=== PATIENT | female | born 1945 | race Caucasian/White ===

== ENCOUNTER 2017-04-21 12:53 | Emergency (ER) | payer OTHER ==
[2017-04-21 13:19] VITALS: TEMP 98.8; BMI 23.0
--- NOTE | 2017-04-21 15:44 | PDOC ---
History of Present Illness - General Chief Complaint: Lightheaded Stated Complaint: NECK PAIN Time Seen by Provider: 04/21/17 15:31 History Source: Patient - History of Present Illness Initial Comments: 04/21/17 16:30 Patient is a 71 y.o. female with a PMH of DLD and Hypothyroidism who presents to our ED c/o 2 isolated pre-syncopal episodes, one episode on exertion and the other when moving from a sitting to standing position. Patient denies any chest pain, shortness of breath, nausea/vomiting as well as recent h/o fevers/ chills. NKDA PMD: Dr. El Hurst Past History - Past Medical History Allergies/Adverse Reactions: Allergies Allergy/AdvReac Type Severity Reaction Status Date / Time No Known Allergies Allergy Verified 04/21/17 13:14 Home Medications: Ambulatory Orders Levothyroxine [Synthroid] 88 mcg PO DAILY 11/13/11 Atorvastatin Calcium 20 mg PO DAILY 04/21/17 COPD: No HTN: No (low bp) Hypercholesterolemia: Yes Thyroid Disease: Yes (hypo) - Immunization History Immunization Up to Date: No - Suicide/Smoking/Psychosocial Hx Smoking Status: No Smoking History: Never smoked Number of Cigarettes Smoked Daily: 0 Information on smoking cessation initiated: No Hx Alcohol Use: No Drug/Substance Use Hx: No Substance Use Type: None Review of Systems - Review of Systems Constitutional: No: Chills, Fever HEENTM: No: Blurred Vision, Double Vision Respiratory: No: Cough Cardiac (ROS): Yes: Lightheadedness. No: Chest Pain, Palpitations, Chest Tightness : No: Burning, Dysuria *Physical Exam - Vital Signs Last Vital Signs Temp Pulse Resp BP Pulse Ox 98.8 F 73 18 127/70 100 04/21/17 13:15 04/21/17 13:15 04/21/17 13:15 04/21/17 13:15 04/21/17 13:15 - Physical Exam General Appearance: Yes: Nourished, Appropriately Dressed HEENT: positive: EOMI, AGUSTIN. negative: Tonsillar Exudate, Tonsillar Erythema, TM Bulging, TM Dull, TM Erythema Neck: positive: Trachea midline, Supple. 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 female who presents to the ED c/o 2 isolated pre-syncopal episodes. On PE patient is hemodynamically stable with appreciable systolic murmur in 2nd intercostal space - likely 2/2 to aortic stenosis. EKG shows NSR , no deviations, good R wave progression V1-V6 -- low clinical concern for ACS, however lightheadedness possible anginal equivalent. Will send troponin as well as CBC (r/o anemia) and CMP (r/o SiSx 2/2 to electrolyte abnormalities). Reassess. 04/21/17 19:16 Troponin (-) x1, CBC shows no anemia, CMP shows no electrolyte derangements. Will discharge home with return precautions follow-up to cardiology. *DC/Admit/Observation/Transfer Diagnosis at time of Disposition: Lightheadedness - Discharge Dispostion Disposition: HOME Condition at time of disposition: Good - Referrals Referrals: El Hurst MD [Primary Care Provider] - Kehinde Zamudio MD [Staff Physician] - - Patient Instructions Additional Instructions: You were evaluated today for lightheadedness. All of your labs were normal and your EKG showed no concerning abnormalities suggestive of active cardiac events. Given your history of high cholesterol, we recommend you make a follow- up appointment with cardiology in the next 1 week. Return to the Emergency Department for any new/worsening/concerning symptoms including chest pain, shortness of breath. - Post Discharge Activity
[2017-04-21 16:26] LABS: BASO % 0.6 % (0-2.0); HEMATOCRIT 37.5 % (32.4-45.2); HEMOGLOBIN 11.9 GM/dL (10.7-15.3); LYMPH % 25.6 % (8-40); MCH 25.9 pg (25.7-33.7); MCHC 31.8 g/dl (32.0-36.0); MEAN CELL VOLUME 81.6 fl (80-96); MEAN PLT VOLUME 7.4 fl (7.5-11.1); MONO % 10.4 % (3.8-10.2); NEUT % 61.4 % (42.8-82.8); PLATELET COUNT 243 K/MM3 (134-434); RDW 13.4 % (11.6-15.6); WHITE BLOOD COUNT 4.7 K/mm3 (4.0-10.0)
[2017-04-21 16:38] LABS: ALBUMIN 3.7 g/dl (3.4-5.0); ANION GAP 4 (8-16); BILIRUBIN,TOTAL 0.3 mg/dL (0.2-1.0); BLOOD UREA NITROGEN 9 mg/dL (7-18); CHLORIDE 108 mmol/L (98-107); CO2 28 mmol/L (21-32); CREATININE 0.8 mg/dL (0.55-1.02); GLUCOSE,RANDOM 141 mg/dL (74-106); POTASSIUM 3.8 mmol/L (3.5-5.1); SGOT/AST 17 U/L (15-37); SGPT/ALT 22 U/L (12-78); SODIUM 140 mmol/L (136-145); TOT PROT 7.1 g/dl (6.4-8.2)
--- NOTE | 2017-04-21 16:38 | PDOC ---
Attending Attestation - Resident Resident Name: ReneeMarybel - ED Attending Attestation I have performed the following: I have examined & evaluated the patient, The case was reviewed & discussed with the resident, I agree w/resident's findings & plan, Exceptions are as noted - HPI HPI: 04/21/17 16:37 71 yo female who had 2 episodes of lightheadedness, once when she stood up and once whle walking. She denies any shortness of breath or chest pain pmh hyperlididemia - Physicial Exam PE: 04/21/17 16:38 wnwd 71 to female in no acute distress head ncat neck supple lungs cta b/l cvs ++murmur abd nontender ext no edema skin warm and dry neuro axox3,.ambulatory psych appropriate - Medical Decision Making 04/21/17 16:40 plan ekg.cardiac w/u,reassess 04/21/17 19:12 cbc and chemistry revealed and sex=89 negative trop ekg nsr
[2017-04-21 16:39] LABS: ALK PHOS 53 U/L (45-117)
[2017-04-21 17:51] VITALS: BP 145/66; PULSE 67
[2017-04-21 17:52] LABS: URINE APPEARANCE CLEAR; URINE BILIRUBIN NEGATIVE (NEGATIVE); URINE BLOOD 1+ (NEGATIVE); URINE COLOR COLORLESS; URINE GLUCOSE (UA) NEGATIVE (NEGATIVE); URINE KETONE NEGATIVE (NEGATIVE); URINE LEUK ESTERASE NEGATIVE (NEGATIVE); URINE NITRITE NEGATIVE (NEGATIVE); URINE PROTEIN NEGATIVE (NEGATIVE); URINE UROBILINOGEN NEGATIVE mg/dL (0.2-1.0)
[2017-04-21 17:58] LABS: INR 1.09 (0.82-1.09); PROTHROMBIN TIME (PATIENT) 12.3 SEC (9.98-11.88)
[2017-04-21 18:03] LABS: URINE BACTERIA RARE /hpf (NONE SEEN)
--- NOTE | 2017-04-23 08:09 | EKG ---
Test Reason : Blood Pressure : / mmHG Vent. Rate : 065 BPM Atrial Rate : 065 BPM P-R Int : 146 ms QRS Dur : 086 ms QT Int : 396 ms P-R-T Axes : 056 017 027 degrees QTc Int : 411 ms NORMAL SINUS RHYTHM POSSIBLE LEFT ATRIAL ENLARGEMENT BORDERLINE ECG NO PREVIOUS ECGS AVAILABLE Confirmed by ELVIA BRYANT, AMANDA ([id number]) on 04/23/2017 8:08:49 AM Referred By: Confirmed By:AMANDA GAN MD
== END 2017-04-21 19:54 | disposition home or self-care (01) ==
LOC: JER 12:53
DX: R42 Dizziness and giddiness (principal); E78.5 Hyperlipidemia, unspecified; E03.9 Hypothyroidism, unspecified
CPT/HCPCS: 36415; 71046-TC; 80053; 81003; 81015; 82550; 84484; 85025; 85610; 87086; 93005; 93010; 99282-25

== ENCOUNTER 2018-09-02 07:41 | Day surgery (SDC) | payer OTHER | END 2018-09-02 14:12 | disposition home or self-care (01) | LOC: JASU-SURG 07:41 ==